=== PATIENT | female | born 1945 ===

== ENCOUNTER 2017-05-20 05:42 | Day surgery (SDC) | payer MEDICARE, MEDICAID ==
--- NOTE | 2017-05-15 16:22 | Pre-Procedure Note/Attestation ---
Pre-Procedure Note/Attestation Complete Prior to Procedure Planned Procedure: left Procedure Narrative: 1. CATARACT EXTRACTION WITH PHACO AND PC IOL IMPLANTATION, LEFT EYE. 2.LIMBAL RELAXING INCISION, LEFT EYE. Indications for Procedure Pre-Operative Diagnosis: 1. CATARACT , LEFT EYE. 2. ASTIGMATISM, LEFT EYE Attestation I attest that I discussed the nature of the procedure; its benefits; risks and complications; and alternatives (and the risks and benefits of such alternatives ), prior to the procedure, with the patient (or the patient's legal medical claims representative). I attest that, if there was a reasonable possibility of needing a blood transfusion, the patient (or the patient's legal medical claims representative) was given the [place] Department of Health Services standardized written summary, pursuant to the [place] Blood Safety Act ([place] Health and Safety Code # 1645, as amended). I attest that I re-evaluated the patient just prior to the surgery and that there has been no change in the patient's H&P, except as documented below: BRANDON MORTON May 15, 2017 16:22
[~2017-05-20] VITALS: Ht 162.6 cm; Wt 71.7 kg
[2017-05-20] VITALS (10 sets, daily range): BP systolic 125–150; BP diastolic 68–78
[2017-05-20] MEDS ORDERED: Akten 3.5% 1ml Btl ONE (05:48)
[2017-05-20] MEDS ORDERED: Tropicamide 1% Opth Soln ONE (05:48)
[2017-05-20] MEDS ORDERED: Phenylephrine 10% Opth Soln 5ml ONE (05:48)
[2017-05-20] MEDS ORDERED: Ketorolac Tromethamine Opth Soln ONE (05:48)
[2017-05-20] MEDS ORDERED: Vigamox Opth Soln ONE (05:48)
[2017-05-20] MEDS ORDERED: acetaZOLAMIDE 125mg tab ORAL ONE (06:00)
[2017-05-20] MEDS: Ketorolac Tromethamine Opth Soln LEFT EYE SCH ×3 (06:11→06:38)
[2017-05-20] MEDS: Vigamox Opth Soln LEFT EYE SCH ×3 (06:11→06:39)
[2017-05-20] MEDS: Phenylephrine 10% Opth Soln 5ml LEFT EYE SCH ×3 (06:11→06:39)
[2017-05-20] MEDS: Akten 3.5% 1ml Btl LEFT EYE SCH ×3 (06:11→06:38)
[2017-05-20] MEDS: Tropicamide 1% Opth Soln LEFT EYE SCH ×3 (06:11→06:38)
[2017-05-20] MEDS ORDERED: BSS 500ml btl ONE (06:18)
[2017-05-20] MEDS ORDERED: Dexamethasone 4mg/ml vial ONE (06:19)
[2017-05-20] MEDS ORDERED: Carbachol 0.01% Op Soln 1.5ml vial ONE (06:20)
[2017-05-20] MEDS ORDERED: Povidone-Iodine 5% opth solution ONE (06:20)
[2017-05-20] MEDS ORDERED: BSS 15ml BTL ONE (06:20)
[2017-05-20] MEDS ORDERED: EPINEPHrine 1mg/1ml Amp ONE (06:20)
[2017-05-20] MEDS ORDERED: Sodium Hyaluronate 10 mg/ml 0.85ml ONE (06:20)
[2017-05-20] MEDS ORDERED: MULTIVITAMINS1 EAC2 ORAL (06:33)
[2017-05-20] MEDS ORDERED: VITAMIN D31000 UNI1 PO (06:33)
[2017-05-20] MEDS ORDERED: CALCIUM600 M1 PO (06:33)
[2017-05-20] MEDS ORDERED: OMEGA 3 1,0001 EACH PO (06:33)
[2017-05-20] MEDS ORDERED: CRESTOR10 M2 ORAL (06:33)
[2017-05-20] MEDS ORDERED: Lidocaine 1% MPF 10mg/ml 5ml ONE (06:55)
[2017-05-20] MEDS ORDERED: LR 1000ml 1,000 ML IVLG SCH (07:22)
--- NOTE | 2017-05-20 07:22 | Anethesia Preoperative Eval ---
Anesthesia Pre-op PMH/ROS General Date of Evaluation: May 20, 2017 Time of Evaluation: 06:50 Anesthesiologist: Antonio ASA Score: ASA 2 Mallampati Score Class I : Soft palate, uvula, fauces, pillars visible Class II: Soft palate, uvula, fauces visible Class III: Soft palate, base of uvula visible Class IV: Only hard plate visible Mallampati Classification: Class II Surgeon: Alton Diagnosis: L eye cataract Surgical Procedure: L eye cataract extraction Anesthesia History: none Family History: no anesthesia problems Allergies: Coded Allergies: No Known Allergies (Unverified , 05/15/17) Medications: see eMAR Past Medical History Cardiovascular: Reports: HTN - borderline, Denies: CAD, [place], valve dz, arrhythmia, other Pulmonary: Denies: asthma, COPD, [place], other Gastrointestinal/Genitourinary: Reports: GERD - mild, Denies: CRI, ESRD, other Neurologic/Psychiatric: Reports: other - chronic pain, Denies: dementia, CVA, depression/anxiety, TIA Endocrine: Denies: DM, hypothyroidism, steroids, other HEENT: Reports: cataract (L), cataract (R), Denies: glaucoma, [place] (L), [place] (R), other Hematology/Immune: Denies: anemia, DVT, bleeding disorder, other Musculoskeletal/Integumentary: Reports: other - osteopenia, Denies: OA, RA, DJD, DDD, edema PMH Narrative: as above PSxH Narrative: none Anesthesia Pre-op Phys. Exam Physician Exam Last Vital Signs Date Time Temp Pulse Resp B/P (MAP) Pulse Ox O2 Delivery O2 Flow Rate FiO2 05/20/17 06:15 98.1 73 18 144/78 100 Room Air Constitutional: NAD Neurologic: CN 2-12 intact Cardiovascular: RRR, no M/R/G Respiratory: CTA Gastrointestinal: S/NT/ND Airway Exam Mallampati Score: Class II MO: limited Neck: stiff ROM: limited Teeth: intact Dentures: no upper, no lower Anesthesia Pre-op A/P Labs see chart Studies Pre-op Studies: EKG - NSR Risk Assessment & Plan Assessment: ASA 2 Plan: mac Status Change Before Surgery: No Pre-Antibiotics Drug: none LIANA MOSER M.D. May 20, 2017 07:22
[2017-05-20] MEDS ORDERED: DiphenhydrAMINE 50mg/ml Inj IVP PRN (07:30)
[2017-05-20] MEDS ORDERED: fentaNYL 100 mcg/2 mL IV PRN (07:30)
--- NOTE | 2017-05-20 07:43 | Discharge Summary ---
Discharge Summary Discharge Summary Discharge Summary DATE OF ADMISSION: 05/20/2017 DATE OF DISCHARGE: 05/20/2017 REASON FOR HOSPITALIZATION: Cataract left eye SURGERY PERFORMED: Cataract extraction with phaco and PC IOL implantation,left eye CONDITION IN THE HOSPITAL:The patient tolerated the surgery without complications. DISCHARGE CONDITION: The patient was stable at discharge. DISCHARGE MEDICATIONS: 1. Vigamox eye drops one drop q.i.d, left eye 2. Prednisolone one drop q.i.d, left eye 3. Acular, one drop q4h, left eye POSTOPERATIVE ORDERS: The patient has to rest at home. No bending, No lifting, No watching Television tonight. POSTOPERATIVE FOLLOW UP: The patient will be followed in my office tomorrow morning at 7 o'clock. BRANDON MORTON May 20, 2017 07:43
--- NOTE | 2017-05-20 07:46 | Brief Operative Note ---
Immediate Post Operative Note Operative Note Chief Complaint: Blerry vision, left eye. difficulty reading and driving Pre-op Diagnosis: 1. CATARACT , LEFT EYE. 2. ASTIGMATISM, LEFT EYE Procedure: Catarac extraction with phaco and PC iOL implantation, left eye Post-op Diagnosis: same as pre-op Surgeon: Brandon Dang MD Buffing Wheel Presser: None Additional Surgeons: None Anesthesiologist: Dr. Alvarez Anesthesia: MAC Specimen: none Complications: none Condition: stable Fluids: 500 ml Estimated Blood Loss: none Drains: none Implant(s) used?: Yes - Monofocal PC IOL implanted in the left eye without complication BRANDON DANG May 20, 2017 07:46
[2017-05-20] MEDS ORDERED: LR 1000ml ONE (08:00)
[2017-05-20] MEDS ORDERED: Midazolam 2mg/2ml Inj ONE (08:00)
[2017-05-20] MEDS ORDERED: NS Irrig 1000ml ONE (08:00)
[2017-05-20] MEDS ORDERED: fentaNYL 100 mcg/2 mL IV ONE (08:00)
[2017-05-20] MEDS ORDERED: Propofol 200mg/20ml IV ONE (08:00)
[2017-05-20] MEDS ORDERED: Sterile Water Irrig 1000ml IRRIG ONE (08:00)
--- NOTE | 2017-05-20 08:09 | Immediate Post-Op Evaluation ---
Immediate Post-Op Evalulation Immediate Post-Op Evalulation Procedure: L eye cataract extractiion with IOL Date of Evaluation: May 20, 2017 Time of Evaluation: 07:46 IV Fluids: 200 Blood Products: none Estimated Blood Loss: none Urinary Output: none Blood Pressure Systolic: 148 Blood Pressure Diastolic: 74 Pulse Rate: 68 Respiratory Rate: 20 O2 Sat by Pulse Oximetry: 99 Temperature (Fahrenheit): 97.5 Pain Score (1-10): 1 Nausea: No Vomiting: No Complications none Patient Status: awake, patent, none Hydration Status: adequate LIANA MOSER M.D. May 20, 2017 08:09
--- NOTE | 2017-05-20 09:07 | 48 Hour Post Anesthesia Eval ---
Post Anesthesia Evaluation Procedure: L eye cataract extractiion with IOL Date of Evaluation: May 20, 2017 Time of Evaluation: 09:06 Blood Pressure Systolic: 148 0: 75 Pulse Rate: 68 Respiratory Rate: 20 Temperature (Fahrenheit): 97.5 O2 Sat by Pulse Oximetry: 99 Airway: patent Nausea: No Vomiting: No Pain Intensity: 1 Hydration Status: adequate Cardiopulmonary Status: stable Mental Status/LOC: patient returned to baseline Follow-up Care/Observations: n/a Post-Anesthesia Complications: none Follow-up care needed: ready to discharge LIANA MOSER M.D. May 20, 2017 09:07
--- NOTE | 2017-05-20 22:15 | Operative Note - Dictated ---
DATE OF OPERATION: 05/20/2017 FACILITY: [facility]. SURGEON: Abel Dang M.D. MANUFACTURING PROCESS TECHNICIAN: None. ANESTHESIOLOGIST: Mart Alvarez M.D. ANESTHESIA: Monitored anesthesia care (MAC). PREOPERATIVE DIAGNOSIS: Cataract, left eye. POSTOPERATIVE DIAGNOSIS: Cataract, left eye. SURGERY PERFORMED: Cataract extraction with phacoemulsification and posterior chamber intraocular lens implantation in the left eye. INDICATION FOR SURGERY: The patient is a 71-year-old lady with history of osteoporosis, hypercholesterolemia, and osteoarthritis. She is taking medications including aspirin, simvastatin, calcium with vitamin D, fish oil, and vitamin B12. She is complaining of blurry vision in the left eye. On examination of the left eye, the cornea is clear. Anterior chamber is clean and quiet. Pupillary reflex is normal. There is no RAPD. There is 4+ nuclear sclerosis and 2+ cortical cataract. Funduscopy shows normal macula and normal optic disc, and peripheral retina is flat. To improve her vision in the left eye, the cataract has to be removed and posterior chamber intraocular lens has to be implanted. INFORMED CONSENT: The nature of the surgery, risks, benefits, alternatives, and potential complications were explained all in detail to the patient. The potential complications including, but not limited to bleeding, infection, posterior capsular rupture, lens subluxation, flat anterior chamber, iris prolapse, uveitis, corneal edema, macular edema, endophthalmitis, retinal detachment, loss of vision, and loss of the eye were all explained in detail to the patient. The patient voiced understanding and accepted all the complications. The alternatives including accommodating lens, multifocal lens, toric lens, and conventional cataract surgery with limbal relaxing incision (LRI) for treatment of astigmatism were all explained in detail to the patient. The patient voiced understanding. The patient elected to have conventional cataract surgery with limbal relaxing incision for treatment of astigmatism. Then, she signed the consent form, which is in the chart. DESCRIPTION OF SURGERY AND FINDINGS: Following that, the patient was taken to the operation room in a stable condition. Lidocaine gel Akten 3.5% were applied to the conjunctiva of the left eye. IV sedation was given by the anesthesiologist, Dr. Alvarez. After adequate anesthesia and sedation had been achieved, the left eye was prepped and draped in a sterile fashion for intraocular surgery. Following that, a speculum was placed in the left eye. Before the patient was taken to the operation room, the cornea was marked at 180 and 90 meridian with a marker. In the operation room, using a corneal marker and marking pen, the steep meridian of the cornea was marked. Following that, using a nile knife, 2 parallel incisions were made in the steep meridian of the cornea to correct the astigmatism. Following that, using a SuperSharp knife, a clear corneal side port was created. Following that, 1% lidocaine without preservative (MPF) was injected into the anterior chamber. Viscoelastic agent Healon was injected into the anterior chamber. Following that, a clear corneal temporal keratotomy was performed using a 2.8 mm keratome. Following that, viscoelastic agent was injected into the anterior chamber again. Following that, Vision Blue was injected into the anterior chamber under the viscoelastic agent to stain the anterior capsule of the crystalline lens. Following that, all viscoelastic agent was removed from the anterior chamber. Following that, a fresh viscoelastic agent was injected into the anterior chamber. Under the clear viscoelastic agent, an anterior capsulotomy was performed in the fashion of capsulorrhexis beautifully. Following that, old viscoelastic agent was removed from the anterior chamber. Following that, with balanced salt solution, hydrodissection and hydrodelineation was performed and the nucleus was freed. Following that, viscoelastic agent was injected into the anterior chamber to protect endothelium of the cornea. Following that, using phacoemulsification machine in the fashion of horizontal chop, the nucleus was removed in toto. Following that, with irrigation aspiration unit, the cortical material was removed from the capsular bag and the capsular bag was polished. Following that, the capsular bag was filled with viscoelastic agent Healon. Following that, a +24 diopter ZCB00 foldable IOL with serial number #[id number] was injected into the capsular bag. Using a Sinskey hook, the lens was manipulated and put in the proper position. Following that, the viscoelastic agent was removed from the anterior posterior part of the lens. Anterior chamber was filled with balanced salt solution and the wound was hydrated with balanced salt solution. The wound was checked for leakage, there was no leakage. Vigamox eye drops were applied to the conjunctiva of the left eye. The patient tolerated the surgery without complications. At the end of the surgery, the eye was patched with a clear sterile fenestrated shield. Following that, the patient was transferred to the recovery room. In the recovery room, 125 mg Diamox was given by mouth stat. Postoperative orders and directions were given to the patient. The patient will be discharged home upon stabilization. The patient will be followed in my office tomorrow morning at 9 o' clock. Abel Dang M.D. DR: ELIEL JOB#: [id number] CC: BEL
== END 2017-05-20 09:05 | disposition home or self-care (01) ==
LOC: SUR 05:42
DX: H25.12 Age-related nuclear cataract, left eye (principal); M81.0 Age-related osteoporosis without current pathological fracture; M19.90 Unspecified osteoarthritis, unspecified site; E78.00 Pure hypercholesterolemia, unspecified; H52.202 Unspecified astigmatism, left eye; E53.8 Deficiency of other specified B group vitamins
CPT/HCPCS: 65772; 66984; J0171; J1100; J2250; J2704; J3010; J7120; V2632; 94003; 94150

== ENCOUNTER 2017-05-27 05:42 | Day surgery (SDC) | payer MEDICARE, MEDICAID ==
--- NOTE | 2017-05-23 12:04 | Pre-Procedure Note/Attestation ---
Pre-Procedure Note/Attestation Complete Prior to Procedure Planned Procedure: right Procedure Narrative: 1. CATARACT EXTRACTION WITH PHACO AND PC IOL IMPLANTATION, RIGHT EYE. 2.LIMBAL RELAXING INCISION, RIGHT EYE. Indications for Procedure Pre-Operative Diagnosis: 1. CATARACT , RIGHT EYE. 2. ASTIGMATISM, RIGHT EYE Attestation I attest that I discussed the nature of the procedure; its benefits; risks and complications; and alternatives (and the risks and benefits of such alternatives ), prior to the procedure, with the patient (or the patient's legal client service representative). I attest that, if there was a reasonable possibility of needing a blood transfusion, the patient (or the patient's legal client service representative) was given the [place] Department of Health Services standardized written summary, pursuant to the Hernando [place] Blood Safety Act ([place] Health and Safety Code # 1645, as amended). I attest that I re-evaluated the patient just prior to the surgery and that there has been no change in the patient's H&P, except as documented below: BRANDON MORTON May 23, 2017 12:04
[~2017-05-27] VITALS: Ht 162.6 cm; Wt 71.7 kg
[2017-05-27] VITALS (11 sets, daily range): BP systolic 118–143; BP diastolic 56–76
[~2017-05-27 05:42] MED LIST: Akten 3.5% 1ml Btl ONE; CALCIUM600 M1 PO; CRESTOR10 M2 ORAL; Ketorolac Tromethamine Opth 5ml Soln ONE; MULTIVITAMINS1 EAC2 ORAL; OMEGA 3 1,0001 EACH PO; Phenylephrine 10% Opth Soln 5ml ONE; Tropicamide 1% Opth 15ml Soln ONE; VITAMIN D31000 UNI1 PO; Vigamox Opth Soln 3ml ONE
[2017-05-27] MEDS ORDERED: acetaZOLAMIDE 125mg tab ORAL ONE (06:00)
[2017-05-27] MEDS: Ketorolac Tromethamine Opth 5ml Soln RIGHT EYE SCH ×3 (06:03→06:33)
[2017-05-27] MEDS: Akten 3.5% 1ml Btl RIGHT EYE SCH ×3 (06:04→06:33)
[2017-05-27] MEDS: Phenylephrine 10% Opth Soln 5ml RIGHT EYE SCH ×3 (06:04→06:33)
[2017-05-27] MEDS: Vigamox Opth Soln 3ml RIGHT EYE SCH ×3 (06:04→06:33)
[2017-05-27] MEDS: Tropicamide 1% Opth 15ml Soln RIGHT EYE SCH ×3 (06:04→06:33)
[2017-05-27] MEDS ORDERED: Dexamethasone 4mg/ml vial ONE (06:57)
[2017-05-27] MEDS ORDERED: BSS 500ml btl ONE (06:57)
[2017-05-27] MEDS ORDERED: Tetracaine 0.5% Opth 4ml Soln ONE (06:57)
[2017-05-27] MEDS ORDERED: Lidocaine 1% MPF 10mg/ml 5ml ONE (06:57)
[2017-05-27] MEDS ORDERED: Povidone-Iodine 5% opth solution ONE (06:58)
[2017-05-27] MEDS ORDERED: Carbachol 0.01% Op Soln 1.5ml vial ONE (06:58)
[2017-05-27] MEDS ORDERED: BSS 15ml BTL ONE (06:59)
[2017-05-27] MEDS ORDERED: EPINEPHrine 1mg/1ml Amp ONE (06:59)
[2017-05-27] MEDS ORDERED: Sodium Hyaluronate 10 mg/ml 0.85ml ONE (06:59)
[2017-05-27] MEDS ORDERED: NS Irrig 1000ml ONE (07:00)
[2017-05-27] MEDS ORDERED: fentaNYL 100 mcg/2 mL IV ONE (07:00)
[2017-05-27] MEDS ORDERED: Propofol 200mg/20ml IV ONE (07:00)
[2017-05-27] MEDS ORDERED: LR 1000ml ONE (07:00)
[2017-05-27] MEDS ORDERED: Midazolam 2mg/2ml Inj ONE (07:00)
[2017-05-27] MEDS ORDERED: Sterile Water Irrig 1000ml IRRIG ONE (07:00)
[2017-05-27] MEDS ORDERED: LR 1000ml 1,000 ML IVLG SCH (07:46)
--- NOTE | 2017-05-27 07:46 | Anethesia Preoperative Eval ---
Anesthesia Pre-op PMH/ROS General Date of Evaluation: May 27, 2017 Time of Evaluation: 07:05 Anesthesiologist: Antonio ASA Score: ASA 2 Mallampati Score Class I : Soft palate, uvula, fauces, pillars visible Class II: Soft palate, uvula, fauces visible Class III: Soft palate, base of uvula visible Class IV: Only hard plate visible Mallampati Classification: Class II Surgeon: Alton Diagnosis: R eye cataract Surgical Procedure: R eye cataract extraction Anesthesia History: none Family History: no anesthesia problems Allergies: Coded Allergies: No Known Allergies (Unverified , 05/15/17) Past Medical History Cardiovascular: Denies: HTN, CAD, [place], valve dz, arrhythmia, other Pulmonary: Denies: asthma, COPD, [place], other Gastrointestinal/Genitourinary: Reports: GERD - mild, Denies: CRI, ESRD, other Neurologic/Psychiatric: Denies: dementia, CVA, depression/anxiety, TIA, other Endocrine: Denies: DM, hypothyroidism, steroids, other HEENT: Reports: cataract (L), cataract (R), Denies: glaucoma, [place] (L), [place] (R), other Hematology/Immune: Denies: anemia, DVT, bleeding disorder, other Musculoskeletal/Integumentary: Reports: DJD, Denies: OA, RA, DDD, edema, other PMH Narrative: as above PSxH Narrative: see H&P Anesthesia Pre-op Phys. Exam Physician Exam Last Vital Signs Date Time Temp Pulse Resp B/P (MAP) Pulse Ox O2 Delivery O2 Flow Rate FiO2 05/27/17 06:09 97.9 64 18 135/65 99 Room Air Constitutional: NAD Neurologic: CN 2-12 intact Cardiovascular: RRR, no M/R/G Respiratory: CTA Gastrointestinal: S/NT/ND Airway Exam Mallampati Score: Class II MO: full Neck: stiff ROM: limited Teeth: intact Dentures: no upper, no lower Anesthesia Pre-op A/P Labs see chart Risk Assessment & Plan Assessment: ASA2 Plan: MAC Status Change Before Surgery: No Pre-Antibiotics Drug: none LIANA MOSER M.D. May 27, 2017 07:46
[2017-05-27] MEDS ORDERED: DiphenhydrAMINE 50mg/ml Inj IVP PRN (08:00)
[2017-05-27] MEDS ORDERED: fentaNYL 100 mcg/2 mL IV PRN (08:00)
--- NOTE | 2017-05-27 08:10 | Discharge Summary ---
Discharge Summary Discharge Summary Discharge Summary DATE OF ADMISSION: 05/27/2017 DATE OF DISCHARGE: 05/27/2017 REASON FOR HOSPITALIZATION: 1- cataract right eye 2- Astigmatism, right eye SURGERY PERFORMED:1- Cataract extraction with phaco and PC IOL implantation, right eye 2- Limbal Relaxing Incision ( LRI ), right eye CONDITION IN THE HOSPITAL:The patient tolerated the surgery without complications. DISCHARGE CONDITION: The patient was stable at discharge. DISCHARGE MEDICATIONS: 1. Vigamox eye drops one drop q.i.d, rightv eye 2. Prednisolone one drop q.i.d, right eye 3. Acular one drop qid, right eye POSTOPERATIVE ORDERS: The patient has to rest at home. No bending, No lifting, No watching Television tonight. POSTOPERATIVE FOLLOW UP: The patient will be followed in my office tomorrow morning at 7 o'clock. BRANDON MORTON May 27, 2017 08:09
--- NOTE | 2017-05-27 08:13 | Brief Operative Note ---
Immediate Post Operative Note Operative Note Chief Complaint: Blurry vision difficulty driving and reading, right eye Pre-op Diagnosis: 1. CATARACT , RIGHT EYE. 2. ASTIGMATISM, RIGHT EYE Procedure: 1- Cataract extraction with phaco and PC IOL implantation,right eye 2- Limbal Relaxin Incision ( LRI ), right eye Post-op Diagnosis: same as pre-op Surgeon: Brandon Dang MD Caption Writer: None Additional Surgeons: NOne Anesthesiologist: DR. Alvarez Anesthesia: MAC Specimen: none Complications: none Condition: stable Fluids: 500 ml Estimated Blood Loss: none Drains: none Implant(s) used?: Yes - Monofocal PC IOL implanted in the right eye without complication, BRANDON DANG May 27, 2017 08:13
--- NOTE | 2017-05-27 08:33 | Immediate Post-Op Evaluation ---
Immediate Post-Op Evalulation Immediate Post-Op Evalulation Procedure: R eye cataract extraction with IOL Date of Evaluation: May 27, 2017 Time of Evaluation: 08:10 IV Fluids: 20 Blood Products: none Estimated Blood Loss: none Urinary Output: none Blood Pressure Systolic: 136 Blood Pressure Diastolic: 74 Pulse Rate: 68 Respiratory Rate: 20 O2 Sat by Pulse Oximetry: 99 Temperature (Fahrenheit): 98.1 Pain Score (1-10): 1 Nausea: No Vomiting: No Complications none Patient Status: awake, patent, none Hydration Status: adequate LIANA MOSER M.D. May 27, 2017 08:33
--- NOTE | 2017-05-27 10:41 | 48 Hour Post Anesthesia Eval ---
Post Anesthesia Evaluation Procedure: R eye cataract extraction with IOL Date of Evaluation: May 27, 2017 Time of Evaluation: 10:40 Blood Pressure Systolic: 118 0: 72 Pulse Rate: 64 Respiratory Rate: 22 Temperature (Fahrenheit): 97.5 O2 Sat by Pulse Oximetry: 98 Airway: patent Nausea: No Vomiting: No Pain Intensity: 1 Hydration Status: adequate Cardiopulmonary Status: stable Mental Status/LOC: patient returned to baseline Follow-up Care/Observations: n/a Post-Anesthesia Complications: none Follow-up care needed: ready to discharge LIANA MOSER M.D. May 27, 2017 10:41
--- NOTE | 2017-05-28 07:00 | Operative Note - Dictated ---
DATE OF OPERATION: 05/27/2017 FACILITY: [facility]. SURGEON: Abel Dang M.D. GREY PERCHER: None. ANESTHESIOLOGIST: Mart Alvarez M.D. ANESTHESIA: Monitored anesthesia care (MAC). PREOPERATIVE DIAGNOSES: 1. Cataract, right eye. 2. Astigmatism, right eye. POSTOPERATIVE DIAGNOSES: 1. Cataract, right eye. 2. Astigmatism, right eye. SURGERY PERFORMED: 1. Cataract extraction with phacoemulsification and posterior chamber intraocular lens implantation in the right eye. 2. Limbal relaxing incision (LRI) in the right eye. Indication For Surgery: The patient is a 71-year-old lady with history of osteoporosis, hypercholesterolemia, and osteoarthritis. She is taking medications including aspirin, simvastatin, calcium with vitamin D, fish oil, and vitamin B12. She is complaining of blurred vision in the right eye. She had cataract surgery in the left eye last week and she is happy with the results. On examination of the right eye, the cornea is clear. Anterior chamber is clean and quiet. Pupillary reflex is normal. There is no RAPD. There is 4+ nuclear sclerosis and 2+ cortical cataract. Funduscopy showed normal macula, normal optic disc, and periphery retina is flat. To improve her vision in the right eye, the cataract has to be removed and posterior chamber intraocular lens has to be implanted. Informed Consent: The nature of the surgery, risks, benefits, alternatives, and potential complications were explained all in detail to the patient. The potential complications including but not limited to bleeding, infection, posterior capsular rupture, lens subluxation, flat anterior chamber, iris prolapse, uveitis, corneal edema, macular edema, endophthalmitis, retinal detachment, loss of vision, and even loss of the eye were all explained in detail to the patient. The patient voiced understanding and accepted all the complications. The alternatives including accommodating lens, multifocal lens, toric lens, and conventional cataract surgery with limbal relaxing incision (LRI) for treatment of astigmatism were all explained in detail to the patient. The patient voiced understanding. The patient elected to have conventional cataract surgery with limbal relaxing incision for treatment of astigmatism. Then, she signed a consent form which is in the chart. Description Of Surgery And Findings: Following that, the patient was taken to the operation room in stable condition. Lidocaine gel, Akten 3.5% were applied to the conjunctiva of the right eye. IV sedation was given by the anesthesiologist, Dr. Alvarez. After adequate anesthesia and sedation had been achieved, the right eye was prepped and draped in sterile fashion for intraocular surgery. Following that, the speculum was placed in the right eye. Before the patient was taken to the operation room, the cornea was marked at 180 and 90 meridian with a marking pen. In the operating room, using a corneal marker and marking pen, the steep meridian of the cornea was marked. Following that, using a nile knife, two parallel incisions were made in the steep meridian of the cornea to correct the astigmatism. Following that, using a Super Sharp knife, a clear corneal side port was created. Following that, 1% lidocaine without preservative (MPF) was injected into the anterior chamber. Viscoelastic agent Healon was injected into the anterior chamber. Following that, a clear corneal temporal keratotomy was performed using a 2.8 mm keratome. Following that, viscoelastic agent was injected into the anterior chamber again. Following that, vision blue was injected into the anterior chamber under the viscoelastic agent to stain the anterior capsule of the crystalline lens. Following that, fresh viscoelastic agent was injected into the anterior chamber. Under the clear viscoelastic agent, an anterior capsulotomy was performed in the fashion of capsulorrhexis beautifully. Following that, all viscoelastic agent was removed from the anterior chamber. Following that, using balanced salt solution, hydrodissection and hydrodelineation was performed and the nucleus was freed. Following that, clear fresh viscoelastic agent Healon was injected into the anterior chamber to protect the endothelium of the cornea. Following that, using phacoemulsification machine in the fashion of horizontal chop, the nucleus was removed in toto. Following that, we used irrigation and aspiration unit. The cortical material was removed from the capsular bag and the capsular bag was polished. Following that, the capsular bag was filled with viscoelastic agent, Healon. Following that, a +27 diopter ZCB00 foldable PCIOL with serial number [id number] was injected into the capsular bag. Using a Sinskey hook, the lens was manipulated within the proper position. Following that, the viscoelastic agent was removed from the anteroposterior part of the lens and the anterior chamber was filled with balanced salt solution. The wound was hydrated with balanced salt solution. The wound was checked for leakage and there was no leakage. Vigamox eyedrops were applied to the conjunctiva of the right eye. The patient tolerated the surgery without complications. At the end of the surgery, the eye was patched with a clear sterile fenestrated shield. Following that, the patient was transferred to the recovery room. In the recovery room, 125 mg Diamox was given by mouth stat. Postoperative orders and directions were given to the patient. The patient will be discharged home upon stabilization. The patient will be followed in my office tomorrow morning at 9 o'clock. Abel Dang M.D. DR: Raffaele JOB#: [id number] CC:
--- NOTE | 2017-05-31 02:15 | Pre-op HX & Phy Repo 2 SIG ---
DATE OF ADMISSION: 05/27/2017 Reason For Evaluation: I was asked by Dr. Abel Dang to see this 71-year-old female, who is going for elective surgery on the right eye. The patient has a cataract in right eye. Please see full Ophthalmology History and Physical by Dr. Abel Dang. The patient was evaluated. Chart was reviewed. Past Medical History/Review Of Systems: Denies history of hypertension. No stroke. No heart attack. No GI bleeding . No heartburn. Denies hepatitis. No renal failure. No respiratory problems. No anemia. No history of diabetes or thyroid problem. Past Surgical History: Left eye cataract surgery and cervical spine C7 fracture. Current Medications: Include Crestor 10 mg, vitamin D3, and calcium supplement. ALLERGIES: Not known. Family History: Parents from old age, father at the age of 90 and mother 76. HABITS: No history of smoke or alcohol habits. No street drugs. PHYSICAL EXAMINATION: General: Alert and well-developed and well-nourished female in her 70s, in no acute distress. Vital Signs: Blood pressure 135/65, temperature 97.9 degrees, pulse 64 , and O2 saturation 99% on room air. HEENT: Head is normocephalic and atraumatic. Ears, clear. Eyes, full description per Dr. Abel Dang. Mouth, clear and moist. SKIN: Warm and dry. No rashes. No diaphoresis. No ulcers. LYMPH NODES: Not enlarged. Neck: Supple. No palpable mass. Lymph nodes not enlarged. No jugular vein distention. CHEST: No deformity or asymmetry. Lungs: Clear to auscultation and percussion. No rales or rhonchi. No cough. HEART: Regular rate. No ectopy. No murmur. No S3 or S4. Abdomen: Soft and benign. Liver and spleen not enlarged. No rebound. Extremities: No deformity. No varicose vein or edema. No calf tenderness. GENITOURINARY: Denies dysuria. CVA nontender. Laboratory And Diagnostic Data: Electrocardiogram: Normal ECG. The patient from midnight. Lab work in the chart in normal limits. IMPRESSION: 1. Cataract, right eye. 2. Hyperlipidemia. 3. Hypertension. Plan: Cataract extraction with intraocular lens implant, right eye per Dr. Abel Dang. Conclusion: The patient's vital signs are stable. ECG is normal. The patient did not eat or drink from last night. The patient's condition optimized for surgery. Carlos Bello M.D. DR: DEANGELO JOB#: [id number] CC:
== END 2017-05-27 09:25 | disposition home or self-care (01) ==
LOC: SUR 05:42
DX: H26.9 Unspecified cataract (principal); H52.201 Unspecified astigmatism, right eye; E78.5 Hyperlipidemia, unspecified; K21.9 Gastro-esophageal reflux disease without esophagitis; M19.90 Unspecified osteoarthritis, unspecified site
CPT/HCPCS: 65772; 66984; J0171; J1100; J2250; J2704; J3010; J7120; V2632; 94003; 94150